=== PATIENT | male | born 1955 | race Caucasian/White ===

== ENCOUNTER → 2023-08-12 08:32 | Outpatient (REF) | payer MEDICARE, OTHER, SELFPAY | LOC: RCS 08:32 | PROVIDERS: ATTENDING PHYSICIAN Internal Medicine Cardiovascular Disease; FAMILY PHYSICIAN Family Medicine | DX: R06.09 Other forms of dyspnea (principal) | CPT/HCPCS: 93306 ==

== ENCOUNTER → 2023-08-14 07:07 | Outpatient (REF) | payer MEDICARE, OTHER, SELFPAY | LOC: DHCBC/DCA 07:07 | PROVIDERS: ATTENDING PHYSICIAN Internal Medicine Cardiovascular Disease; FAMILY PHYSICIAN Family Medicine | DX: R06.09 Other forms of dyspnea (principal) | CPT/HCPCS: 78452; 93017; A9500; J2785 ==

== ENCOUNTER → 2023-09-17 09:33 | Outpatient (REF) | payer MEDICARE, OTHER, SELFPAY | LOC: RCS 09:33 | PROVIDERS: ATTENDING PHYSICIAN Internal Medicine Cardiovascular Disease; FAMILY PHYSICIAN Family Medicine | DX: I42.2 Other hypertrophic cardiomyopathy (principal) | CPT/HCPCS: 93225; 93226 ==

== ENCOUNTER → 2023-09-21 13:10 | Outpatient (REF) | payer MEDICARE, OTHER, SELFPAY | LOC: RAD 13:10 | PROVIDERS: ATTENDING PHYSICIAN Otolaryngology; FAMILY PHYSICIAN Family Medicine | DX: J38.01 Paralysis of vocal cords and larynx, unilateral (principal); R13.12 Dysphagia, oropharyngeal phase | CPT/HCPCS: 70491; 71260; Q9967 ==

== ENCOUNTER → 2023-10-16 08:36 | Outpatient (REF) | payer MEDICARE, OTHER, SELFPAY | LOC: PAVMRI 08:36 | PROVIDERS: ATTENDING PHYSICIAN Internal Medicine Cardiovascular Disease; FAMILY PHYSICIAN Family Medicine | DX: I42.2 Other hypertrophic cardiomyopathy (principal) | CPT/HCPCS: 75561; 75565; A9585 ==

== ENCOUNTER 2023-11-03 06:06 | Outpatient (RCR) | payer MEDICARE, OTHER, SELFPAY | END 2023-11-03 23:59 | disposition home or self-care (01) | LOC: RST 06:06 | PROVIDERS: ATTENDING PHYSICIAN Otolaryngology; FAMILY PHYSICIAN Family Medicine | DX: R13.12 Dysphagia, oropharyngeal phase (principal); J38.01 Paralysis of vocal cords and larynx, unilateral | CPT/HCPCS: 92610 ==

== ENCOUNTER → 2023-12-29 08:13 | Outpatient (REF) | payer MEDICARE, OTHER, SELFPAY | LOC: RST 08:13 | PROVIDERS: ATTENDING PHYSICIAN Otolaryngology; FAMILY PHYSICIAN Family Medicine | DX: J38.01 Paralysis of vocal cords and larynx, unilateral (principal); R13.12 Dysphagia, oropharyngeal phase | CPT/HCPCS: 74230; 92611 ==